=== PATIENT | female | born 1995 | race Caucasian/White ===

== ENCOUNTER 2020-10-03 14:17 | Inpatient (IN) | payer SELFPAY ==
[2020-10-04] MEDS ORDERED: PITOCIN 30 UNITS/ LR 500 ML 30 UNITS/500 ML IV.SOLN. IV SCH (18:00)
[2020-10-04 19:23] LABS: Absolute Neutrophil Ct (ANC) 6.74 (1.4-6.9); BASOPHIL % 0.3 % (0.0-0.4); Basophil (Absolute #) 0.03 (0-0.4); Eosinophil % 1.6 % (0.00-5.0); Eosinophil (Absolute #) 0.15 (0-0.5); Hematocrit 37.6 % (35-47); Lymphocyte (Absolute #) 1.57 (1.0-4.6); Lymphocytes % 16.6 % (24.0-44.0); Mean Cell Volume 93.3 fl (78-100); Mean Corpuscular Hemoglobin 29.8 pg (26-32); Mean Corpuscular Hgb Concent. 31.9 g/dl (32-36); Mean Platelet Volume 12.4 fl (7.5-11.0); Monocyte (Absolute #) 0.94 (0.0-1.3); Neutrophil % 71.5 % (36.0-66.0); Platelet Count 202 K/mm3 (150-450); Red Blood Count 4.03 M/mm3 (4.1-5.4); Red Cell Distribution Width 14.4 % (11.5-14.0); White Blood Count 9.4 K/mm3 (4.0-10.5)
[2020-10-04 19:57] LABS: ABO TYPING A; Antibody Screen NEGATIVE (NEGATIVE); RH TYPING POSITIVE
[2020-10-04 20:00] LABS: Amphetamine,Urine NEGATIVE (NEGATIVE); Barbiturate,Urine NEGATIVE (NEGATIVE); Benzodiazepine,Urine NEGATIVE (NEGATIVE); Cocaine,Urine NEGATIVE (NEGATIVE); Methadone,Urine NEGATIVE (NEGATIVE); Opiate,Urine NEGATIVE (NEGATIVE); PCP,Urine NEGATIVE (NEGATIVE); THC,Urine NEGATIVE (NEGATIVE)
[2020-10-05] MEDS ORDERED: Nubain 10 MG/ML IV ONE (03:43)
[2020-10-05] MEDS ORDERED: XYLOCAINE 1% HCL 20 ML MDV ONE (07:07)
[2020-10-05] MEDS ORDERED: Lactated Ringers 1,000 ML IV SCH (08:00)
[2020-10-05] MEDS ORDERED: LANSINOH 40 GM TOP PRN (08:16)
[2020-10-05] MEDS ORDERED: Ambien 10 MG PO PRN (08:16)
[2020-10-05] MEDS ORDERED: Dermoplast Spray TP PRN (08:16)
[2020-10-05] MEDS ORDERED: NORCO 5/325 MG PO PRN (08:16)
[2020-10-05] MEDS ORDERED: CORTISONE 1% CREAM TP PRN (08:16)
[2020-10-05] MEDS ORDERED: Mylicon 80MG PO PRN (08:16)
[2020-10-05] MEDS ORDERED: Anucort-HC SUPPOSITORY PR PRN (08:16)
[2020-10-05] MEDS ORDERED: Dulcolax 10 MG SUPP PR PRN (08:16)
[2020-10-05] MEDS ORDERED: TUCKS TP PRN (08:16)
[2020-10-05] MEDS: MOTRIN 400 MG PO PRN (09:46)
[2020-10-05] MEDS: TYLENOL EXTRA STRENGTH 500 MG PO PRN ×2 (09:51→16:11)
[2020-10-05] MEDS ORDERED: M-M-R II Vaccine With Diluent SQ ONE (15:00)
[2020-10-05] MEDS ORDERED: Adacel Vial IM ONE (15:00)
[2020-10-05] MEDS: FERREX 150 PO SCH (16:09)
[2020-10-05] MEDS: Colace 100 MG PO SCH ×2 (16:09→21:58)
[2020-10-05] MEDS ORDERED: XYLOCAINE 1% HCL 20 ML MDV IJ PRN (18:18)
[2020-10-05] MEDS ORDERED: PITOCIN 30 UNITS/ LR 500 ML 30 UNITS/500 ML IV.SOLN. IV SCH (18:30)
[2020-10-06 04:58] LABS: Absolute Neutrophil Ct (ANC) 9.88 (1.4-6.9); BASOPHIL % 0.1 % (0.0-0.4); Basophil (Absolute #) 0.02 (0-0.4); Eosinophil % 0.8 % (0.00-5.0); Eosinophil (Absolute #) 0.11 (0-0.5); Hematocrit 34.2 % (35-47); Hemoglobin 10.6 gm/dl (12.0-16.0); Lymphocyte (Absolute #) 2.31 (1.0-4.6); Lymphocytes % 17.1 % (24.0-44.0); Mean Cell Volume 94.2 fl (78-100); Mean Corpuscular Hemoglobin 29.2 pg (26-32); Mean Platelet Volume 12.6 fl (7.5-11.0); Monocyte (Absolute #) 1.19 (0.0-1.3); Monocytes % 8.8 % (0.0-12.0); Neutrophil % 73.2 % (36.0-66.0); Platelet Count 198 K/mm3 (150-450); Red Blood Count 3.63 M/mm3 (4.1-5.4); Red Cell Distribution Width 14.7 % (11.5-14.0); White Blood Count 13.5 K/mm3 (4.0-10.5)
[2020-10-06] MEDS: MOTRIN 400 MG PO PRN ×2 (06:16→17:23)
[2020-10-06] MEDS: FERREX 150 PO SCH (10:46)
[2020-10-06] MEDS: Colace 100 MG PO SCH ×2 (10:47→22:09)
[2020-10-07 09:11] LABS: Absolute Neutrophil Ct (ANC) 8.43 (1.4-6.9); BASOPHIL % 0.2 % (0.0-0.4); Basophil (Absolute #) 0.03 (0-0.4); Eosinophil % 2.7 % (0.00-5.0); Eosinophil (Absolute #) 0.33 (0-0.5); Hematocrit 36.3 % (35-47); Hemoglobin 11.1 gm/dl (12.0-16.0); Lymphocyte (Absolute #) 2.23 (1.0-4.6); Lymphocytes % 18.5 % (24.0-44.0); Mean Cell Volume 94.8 fl (78-100); Mean Corpuscular Hgb Concent. 30.6 g/dl (32-36); Mean Platelet Volume 11.7 fl (7.5-11.0); Monocyte (Absolute #) 1.06 (0.0-1.3); Monocytes % 8.8 % (0.0-12.0); Neutrophil % 69.8 % (36.0-66.0); Platelet Count 197 K/mm3 (150-450); Red Blood Count 3.83 M/mm3 (4.1-5.4); Red Cell Distribution Width 14.7 % (11.5-14.0); White Blood Count 12.1 K/mm3 (4.0-10.5)
[2020-10-07 09:52] LABS: ALBUMIN 3.5 g/dL (3.5-5.0); ALKALINE PHOSPHATASE 89 U/L (38-126); ANION GAP 13.2 MEQ/L (5-15); BILIRUBIN,TOTAL < 0.10 mg/dL (0.2-1.3); BLOOD UREA NITROGEN 14 mg/dL (7-17); CHLORIDE 105 mmol/L (98-107); Calcium 9.2 mg/dL (8.4-10.2); Carbon Dioxide 23 mmol/L (22-30); Creatinine 1 0.69 mg/dL (0.52-1.04); EST GLOMERULAR FILTRATION RATE > 60.0 ML/MIN; Glucose 89 mg/dL (74-106); Potassium 3.9 mmol/L (3.5-5.1); SGOT/AST 28 U/L (14-36); SGPT/ALT 16 U/L (0-35); SODIUM 138 mmol/L (137-145); Total Protein 6.6 g/dL (6.3-8.2)
[2020-10-07] MEDS: Colace 100 MG PO SCH ×2 (10:23→22:27)
[2020-10-07] MEDS: FERREX 150 PO SCH (10:23)
[2020-10-08] MEDS ORDERED: SYNTHROID 25 MCG PO SCH ×2 (07:00)
--- NOTE | 2020-10-08 09:20 | ECHO ---
Transthoracic echocardiographic examination and color Doppler was done on 10/07/2020. INDICATION: Weakness. IMPRESSION: 1) NO REGIONAL WALL MOTION ABNORMALITY. ESTIMATED GLOBAL LEFT VENTRICULAR EJECTION FRACTION BETWEEN 50 AND 55%. 2) TRACE MITRAL REGURGITATION. 3) TRACE TRICUSPID REGURGITATION. 4) TRACE PULMONIC INSUFFICIENCY. 5) ILL DEFINED ECHO DENSITIES IN THE RIGHT ATRIUM. The left ventricle is visualized and demonstrated adequate motion of all the segments. Estimated global left ventricular ejection fraction around 50 to 55%. The left ventricular thickness is normal. The mitral valve is seen and this opens adequately. There is trace mitral regurgitation. Left atrium is normal. The aortic valve opens adequately. There is no significant gradient across the left ventricular outflow tract. The right side chambers are normal. There appears to be some trace tricuspid regurgitation. The right ventricular systolic pressure cannot be measured accurately as there is no good tricuspid valve regurgitation envelope. In the region of the right atrium there are some echo densities which may represent a Chiari network. However further interrogation is needed in the area of the right atrium and atrial septum.
[2020-10-08] MEDS: Colace 100 MG PO SCH (09:37)
[2020-10-08] MEDS: FERREX 150 PO SCH (09:37)
[2020-10-08 10:18] VITALS: BP 113/71; PULSE 87; O2SAT 97
== END 2020-10-08 12:45 | disposition home or self-care (01) | DRG 807 ==
LOC: OBSVTOIN 10-04 18:02 → OB 10-04 18:02 → INTOOBSV 10-04 18:02 → OBSVTOIN 10-05 05:00
PROVIDERS: ADMIT Family Medicine; ATTEND Family Medicine
PROC: 10E0XZZ Delivery of Products of Conception, External Approach (ICD-10-PCS; principal; 2020-10-05)
DX: O69.2XX0 Labor and delivery complicated by other cord entanglement, with compression, not applicable or unspecified (principal); Z37.0 Single live birth; Z3A.39 39 weeks gestation of pregnancy; I49.9 Cardiac arrhythmia, unspecified
CPT/HCPCS: 36415; 80053; 80307; 84443; 85025; 86850; 86900; 86901; 90471; 90472; 90707; 90715; 93005; 93012; 93306; G0378; J2300; J2590; A9270-GY